=== PATIENT | male | born 1995 | race Caucasian/White ===

== ENCOUNTER 2023-01-23 22:05 | Emergency (ER) | payer MEDICARE, MEDICAID ==
[2023-01-23 22:37] VITALS: BP 125/74; O2SAT 97
[2023-01-24 00:20] LABS: MUDS CUTOFF CONCENTRATIONS CUTOFF CONC BELOW:
[2023-01-24 00:49] LABS: AMPHETAMINE SCREEN,URINE POSITIVE (NEGATIVE); BARBITURATE SCREEN,UR NEGATIVE (NEGATIVE); BENZODIAZEPINES SCREEN, URINE NEGATIVE (NEGATIVE); COCAINE SCREEN URINE NEGATIVE (NEGATIVE); METHADONE SCREEN, URINE NEGATIVE (NEGATIVE); METHAMPHETAMINES SCREEN, URINE POSITIVE (NEGATIVE); OPIATE SCREEN, URINE NEGATIVE (NEGATIVE); OXYCODONE SCREEN, URINE NEGATIVE (NEGATIVE); PROPOXYPHENE SCREEN, URINE NEGATIVE (NEGATIVE); THC CANNABINOID SCREEN, URINE NEGATIVE (NEGATIVE); TRICYCLIC ANTIDEPRESSANT,URINE NEGATIVE (NEGATIVE)
--- NOTE | 2023-01-24 02:16 | ED Physician Documentation ---
PD HPI MHE - Stated complaint Stated Complaint: PARANOIA - Chief complaint Chief Complaint: MHE - History obtained from History obtained from: Patient - Additional information Additional information: HPI from patient. Patient presents to ED voluntarily c/o AH and VH since last night. He says that last night, he ran out of his trailer late at night to yell at people trespassing on his property to get off. He quickly realized there was no one there and that he was hallucinating. Sometime after that same evening, he had visions of strangers tearing up the floor of his trailer. He started to yell at them, too, and again quickly realized there was no one there. Patient tells me he take olaznepine 10 mg PO BID, and two new prescriptions (started 01/08/23) are buproprion and clonidine. 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 He strongly denies SI/HI. He says he is asking for some kind of help so that he doesn't act on (in his response) to the AH/VH. Denies ethanol intake. Review of Systems Constitutional: reports: Reviewed and negative Cardiac: reports: Reviewed and negative Respiratory: reports: Reviewed and negative GI: reports: Reviewed and negative Neurologic: reports: Reviewed and negative Psychiatric: reports: Depressed, Hallucinations, Anxiety. denies: Suicidal, Homicidal PD PAST MEDICAL HISTORY - Past Medical History Past Medical History: Yes Cardiovascular: Hypertension Respiratory: None Neuro: None Endocrine/Autoimmune: None GI: None : None HEENT: None Psych: Depression, Post traumatic stress disorder Musculoskeletal: None Derm: None - Past Surgical History Past Surgical History: No - Present Medications Home Medications: Ambulatory Orders Medication Instructions Recorded Confirmed OLANZapine [Olanzapine] 10 mg PO DAILY 01/23/23 01/23/23 buPROPion HCL [Bupropion Xl] 150 mg PO DAILY 01/23/23 01/23/23 cloNIDine [Catapres] 0.1 mg PO HS 01/23/23 01/23/23 - Allergies Allergies/Adverse Reactions: Allergies Allergy/AdvReac Type Severity Reaction Status Date / Time No Known Drug Allergies Allergy Verified 01/23/23 22:29 - Social History Does the pt smoke?: No Smoking Status: Never smoker Does the pt drink ETOH?: No Does the pt have substance abuse?: No - Immunizations Immunizations are current?: Yes - POLST Patient has POLST: No PD ED PE NORMAL - Vitals Vital signs reviewed: Yes - General General: Alert and oriented X 3, No acute distress, Well developed/nourished - HEENT HEENT: Atraumatic, PERRL, EOMI - Cardiac Cardiac: RRR, No murmur - Respiratory Respiratory: No respiratory distress, Clear bilaterally - Abdomen Abdomen: Soft, Non tender - Derm Derm: Normal color, Warm and dry - Neuro Neuro: Alert and oriented X 3, precision crop manager 2-12 intact, No motor deficit, No sensory deficit, Normal speech Eye Opening: Spontaneous Motor: Obeys Commands Verbal: Oriented GCS Score: 15 PD ED PE EXPANDED - Psych Psych: Withdrawn, Other (flat affect) Results - Vitals Vitals: Oxygen O2 Source Room air - Labs Labs: Laboratory Tests 01/23/23 01/23/23 01/24/23 22:37 22:51 05:39 WBC 8.3 RBC 5.35 Hgb 15.8 Hct 45.5 MCV 85.0 MCH 29.5 MCHC 34.7 RDW 12.9 Plt Count 289 MPV 8.8 Neut # (Auto) 4.1 Lymph # (Auto) 3.0 [place] # (Auto) 1.0 Eos # (Auto) 0.1 Baso # (Auto) 0.0 Absolute Nucleated RBC 0.00 Nucleated RBC % 0.0 Sodium Potassium Chloride Carbon Dioxide Anion Gap BUN Creatinine Estimated GFR (MDRD) Glucose Calcium Total Bilirubin AST ALT Alkaline Phosphatase Total Protein Albumin Globulin Albumin/Globulin Ratio Lipase Salicylates Urine Opiates Screen NEGATIVE Ur Oxycodone Screen NEGATIVE Urine Methadone Screen NEGATIVE Ur Propoxyphene Screen NEGATIVE Acetaminophen Ur Barbiturates Screen NEGATIVE Ur Tricyclics Screen NEGATIVE Ur Phencyclidine Scrn NEGATIVE Ur Amphetamine Screen POSITIVE H U Methamphetamines Scrn POSITIVE H U Benzodiazepines Scrn NEGATIVE Urine Cocaine Screen NEGATIVE U Cannabinoids Screen NEGATIVE Ethyl Alcohol < 10.0 01/24/23 05:39 WBC RBC Hgb Hct MCV MCH MCHC RDW Plt Count MPV Neut # (Auto) Lymph # (Auto) [place] # (Auto) Eos # (Auto) Baso # (Auto) Absolute Nucleated RBC Nucleated RBC % Sodium 137 Potassium 3.8 Chloride 105 Carbon Dioxide 24 Anion Gap 8.0 BUN 23 H Creatinine 1.4 H Estimated GFR (MDRD) 62 L Glucose 92 Calcium 10.2 Total Bilirubin 0.6 AST 31 ALT 31 Alkaline Phosphatase 92 Total Protein 7.8 Albumin 4.8 Globulin 3.0 Albumin/Globulin Ratio 1.6 Lipase 8 L Salicylates < 1.5 Urine Opiates Screen Ur Oxycodone Screen Urine Methadone Screen Ur Propoxyphene Screen Acetaminophen < 0.1 Ur Barbiturates Screen Ur Tricyclics Screen Ur Phencyclidine Scrn Ur Amphetamine Screen U Methamphetamines Scrn U Benzodiazepines Scrn Urine Cocaine Screen U Cannabinoids Screen Ethyl Alcohol PD Medical Decision Making - ED course Complexity details: reviewed results, re-evaluated patient, considered differential, d/w patient ED course: Telepsychiatric consult obtained; they recommend involuntary inpatient treatment. DCR consult requested through [facility] and this consult is pending at end of my shift; turn-over of care is to Dr. Carrasquillo at end of my shift. Departure - Departure Disposition: 01 Home, Self Care Clinical Impression: Psychiatric symptoms Condition: Stable Instructions: ED Psychosis Comments: Follow-up with [facility] at [phone] to schedule psychiatric care and counseling. Please make sure to take your medications as directed. Return to the emergency department with any worsening symptoms. Forms: PCP List Discharge Date/Time: 01/24/23 10:53
[2023-01-24] MEDS ORDERED: OLANZapine ODT 5 MG TABLET TL STA (05:24)
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
[2023-01-24 05:46] LABS: BASOPHILS % (AUTO) 0.5 %; EOSINOPHILS # (AUTO) 0.1 10^3/uL (0.0-0.7); EOSINOPHILS % (AUTO) 1.1 %; HCT - HEMATOCRIT 45.5 % (42.0-52.0); HGB - HEMOGLOBIN 15.8 g/dL (14.0-18.0); LYMPHOCYTES % (AUTO) 36.7 %; MEAN CORPUSCULAR HEMOGLOBIN 29.5 pg (27.0-31.0); MEAN CORPUSCULAR HGB CONC 34.7 g/dL (32.0-36.0); MEAN PLATELET VOLUME 8.8 fL (7.4-11.4); MONOCYTES % (AUTO) 12.1 %; NEUTROPHILS # (AUTO) 4.1 10^3/uL (1.5-6.6); NEUTROPHILS % (AUTO) 49.5 %; PLT - PLATELET COUNT 289 10^3/uL (130-450); RED BLOOD COUNT 5.35 10^6/uL (4.70-6.10); RED CELL DISTRIBUTION WIDTH 12.9 % (12.0-15.0); WHITE BLOOD COUNT 8.3 x10^3/uL (4.8-10.8)
[2023-01-24 05:57] LABS: ALBUMIN 4.8 g/dL (3.2-5.5); ALBUMIN/GLOBULIN RATIO 1.6 (1.0-2.2); ALKALINE PHOSPHATASE 92 IU/L (42-121); ALT ALANINE AMINOTRANSFERASE 31 IU/L (10-60); AST ASPARTATE AMINOTRANSFERASE 31 IU/L (10-42); BILIRUBIN,TOTAL 0.6 mg/dL (0.2-1.0); BUN - BLOOD UREA NITROGEN 23 mg/dL (6-20); CALCIUM 10.2 mg/dL (8.5-10.3); CARBON DIOXIDE - CO2 24 mmol/L (21-32); CHLORIDE 105 mmol/L (101-111); CREATININE 1.4 mg/dL (0.6-1.3); GFR - MDRD 62 (>89); GLUCOSE 92 mg/dL (74-104); POTASSIUM 3.8 mmol/L (3.5-4.5); SODIUM 137 mmol/L (135-145); TOTAL PROTEIN 7.8 g/dL (6.4-8.9)
[2023-01-24 05:58] LABS: ACETAMINOPHEN < 0.1 ug/mL
[2023-01-24 05:59] LABS: LIPASE 8 U/L (11-82)
[2023-01-24 06:00] LABS: SALICYLATE < 1.5 mg/dL
--- NOTE | 2023-01-24 08:24 | ED Physician Documentation ---
ED Addendum - Addendum Addendum: 01/24/23 08:23 Christi was DCR is here to see the patient. 01/24/23 09:52 Christi has evaluated the patient and also spoken to his mother. Patient does not appear to be acutely psychotic or gravely disabled at this time. He is not suicidal. He he does not meet criteria for involuntary de tainment. He is very eager for additional outpatient resources and does see a provider at the [facility]. Christi is going to give him additional resources regarding a community social worker delinquency prevention for therapy. Departure - Departure Disposition: 01 Home, Self Care Clinical Impression: Psychiatric symptoms Condition: Stable Instructions: ED Psychosis Comments: Follow-up with [facility] at [phone] to schedule psychiatric care and counseling. Please make sure to take your medications as directed. Return to the emergency department with any worsening symptoms. Forms: PCP List
== END 2023-01-24 10:53 | disposition home or self-care (01) ==
LOC: ED 22:05
DX: R44.0 Auditory hallucinations (principal); R44.1 Visual hallucinations; F15.122 Other stimulant abuse with intoxication with perceptual disturbance; F43.10 Post-traumatic stress disorder, unspecified; F41.9 Anxiety disorder, unspecified; F32.A Depression, unspecified; I10 Essential (primary) hypertension; Z79.899 Other long term (current) drug therapy
CPT/HCPCS: 36415; 80053; 80306; 80307; 83690; 85025; 99283; A9270; G0425; G0480; Q3014; 80320; 80329

== ENCOUNTER 2023-01-26 03:12 | Outpatient (CLI) | payer MEDICARE, MEDICAID | END 2023-01-26 03:13 | disposition critical access hospital (66) | LOC: EMS 03:12 | DX: Z04.6 Encounter for general psychiatric examination, requested by authority (principal); R46.89 Other symptoms and signs involving appearance and behavior; R30.9 Painful micturition, unspecified | CPT/HCPCS: A0425; A0429 ==

== ENCOUNTER 2023-01-26 03:33 | Inpatient (IN) | payer MEDICARE, MEDICAID ==
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
[2023-01-26 04:10] LABS: BASOPHILS % (AUTO) 0.4 %; EOSINOPHILS # (AUTO) 0.1 10^3/uL (0.0-0.7); EOSINOPHILS % (AUTO) 0.7 %; HCT - HEMATOCRIT 44.6 % (42.0-52.0); HGB - HEMOGLOBIN 15.4 g/dL (14.0-18.0); LYMPHOCYTES # (AUTO) 2.4 10^3/uL (1.5-3.5); MEAN CORPUSCULAR HGB CONC 34.5 g/dL (32.0-36.0); MEAN PLATELET VOLUME 8.9 fL (7.4-11.4); MONOCYTES # (AUTO) 1.1 10^3/uL (0.0-1.0); MONOCYTES % (AUTO) 11.2 %; NEUTROPHILS # (AUTO) 5.7 10^3/uL (1.5-6.6); NEUTROPHILS % (AUTO) 61.6 %; PLT - PLATELET COUNT 302 10^3/uL (130-450); RED BLOOD COUNT 5.31 10^6/uL (4.70-6.10); RED CELL DISTRIBUTION WIDTH 12.5 % (12.0-15.0); WHITE BLOOD COUNT 9.3 x10^3/uL (4.8-10.8)
[2023-01-26] MEDS ORDERED: OLANZapine ODT 5 MG TABLET TL ONE (04:14)
[2023-01-26] MEDS ORDERED: buPROPion SR 150 MG TABLET PO STA (04:14)
[2023-01-26] MEDS ORDERED: cloNIDine 0.1 MG TABLET PO STA (04:14)
[2023-01-26 04:18] LABS: GLUCOSE, URINE (UA) NEGATIVE (NEGATIVE); KETONES,URINE (UA) 15 mg/dL (NEGATIVE); LEUKOCYTE ESTERASE, URINE NEGATIVE (NEGATIVE); MUDS CUTOFF CONCENTRATIONS CUTOFF CONC BELOW:; NITRITE,URINE NEGATIVE (NEGATIVE); OCCULT BLOOD,URINE NEGATIVE (NEGATIVE); PH,URINE 5.5 PH (5.0-7.5); PROTEIN,URINE TRACE mg/dL (NEGATIVE); UROBILINOGEN,URINE 0.2 (NORMAL) E.U./dL (NORMAL)
[2023-01-26 04:22] LABS: BILIRUBIN,URINE NEGATIVE (NEGATIVE); CLARITY,URINE CLEAR (CLEAR); ICTOTEST,URINE NEGATIVE
[2023-01-26 04:26] LABS: ALBUMIN/GLOBULIN RATIO 1.6 (1.0-2.2); ALKALINE PHOSPHATASE 103 IU/L (42-121); ALT ALANINE AMINOTRANSFERASE 36 IU/L (10-60); AST ASPARTATE AMINOTRANSFERASE 50 IU/L (10-42); BILIRUBIN,TOTAL 0.7 mg/dL (0.2-1.0); BUN - BLOOD UREA NITROGEN 25 mg/dL (6-20); CALCIUM 10.2 mg/dL (8.5-10.3); CARBON DIOXIDE - CO2 22 mmol/L (21-32); CHLORIDE 103 mmol/L (101-111); CREATININE 1.3 mg/dL (0.6-1.3); ETOH - ETHANOL < 10.0 mg/dL; GFR - MDRD 67 (>89); GLUCOSE 101 mg/dL (74-104); LIPASE 10 U/L (11-82); POTASSIUM 3.9 mmol/L (3.5-4.5); SODIUM 136 mmol/L (135-145); TOTAL PROTEIN 8.2 g/dL (6.4-8.9)
[2023-01-26 04:28] LABS: THC CANNABINOID SCREEN, URINE POSITIVE (NEGATIVE)
[2023-01-26 04:29] LABS: AMPHETAMINE SCREEN,URINE POSITIVE (NEGATIVE); BARBITURATE SCREEN,UR NEGATIVE (NEGATIVE); BENZODIAZEPINES SCREEN, URINE NEGATIVE (NEGATIVE); COCAINE SCREEN URINE NEGATIVE (NEGATIVE); METHADONE SCREEN, URINE NEGATIVE (NEGATIVE); METHAMPHETAMINES SCREEN, URINE POSITIVE (NEGATIVE); OPIATE SCREEN, URINE NEGATIVE (NEGATIVE); OXYCODONE SCREEN, URINE NEGATIVE (NEGATIVE); PROPOXYPHENE SCREEN, URINE NEGATIVE (NEGATIVE); TRICYCLIC ANTIDEPRESSANT,URINE NEGATIVE (NEGATIVE)
[2023-01-26 04:38] LABS: CK- CREATINE KINASE 2371 IU/L (30-223); SALICYLATE < 1.5 mg/dL
[2023-01-26 04:39] LABS: ACETAMINOPHEN < 0.1 ug/mL
[2023-01-26] MEDS ORDERED: SODIUM CHLORIDE 0.9% 1,000 ML IV STA (04:39)
[2023-01-26 04:41] LABS: THYROID STIMULATING HORMONE 2.21 uIU/mL (0.34-5.60)
[2023-01-26] MEDS ORDERED: SODIUM CHLORIDE 0.9% 1,000 ML IV ONE (04:58)
[2023-01-26] MEDS ORDERED: ACETAMINOPHEN 325 MG TABLET PO PRN (05:05)
[2023-01-26] MEDS ORDERED: SODIUM CHLORIDE FLUSH 0.9% 10 ML SYRINGE IVP PRN (05:05)
[2023-01-26] MEDS ORDERED: ONDANSETRON 4 MG/2 ML VIAL IVP PRN (05:05)
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
[2023-01-26] MEDS: SODIUM CHLORIDE 0.9% 1,000 ML IV SCH ×2 (07:34→17:17)
[2023-01-26] MEDS: SODIUM CHLORIDE FLUSH 0.9% 10 ML SYRINGE IVP SCH ×2 (08:02→17:17)
--- NOTE | 2023-01-26 09:57 | XRAY Report ---
PROCEDURE: Chest 1 View X-Ray INDICATIONS: Hypoxia TECHNIQUE: One view of the chest was acquired. COMPARISON: None. FINDINGS: Surgical changes and devices: None. Lungs and pleura: Bilateral low lung volumes. No focal air space opacity is seen. No definite pleura l effusion or pneumothorax on this supine exam. Mediastinum: Mediastinal contours appear normal. Heart size is normal. Bones and chest wall: No suspicious bony lesions. Overlying soft tissues appear unremarkable. IMPRESSION: Low lung lines bilaterally. No definite acute cardiopulmonary abnormality. Reviewed by: Gurvinder Poon MD on 01/26/2023 9:55 AM PDT Approved by: Gurvinder Poon MD on 01/26/2023 9:55 AM PDT Station ID: [id number]
[2023-01-26 14:54] VITALS: BP 143/80
[2023-01-26 16:19] VITALS: O2SAT 98
--- NOTE | 2023-01-26 16:41 | PHARMACY PROGRESS NOTE ---
- Best Possible Medication History Admit Date and Time: 01/26/23 0505 Processed by: Pharmacy Medication History completed: Yes Patient Interview: Completed Secondary Source(s): Insurance records As the person ultimately responsible for medication therapy, providers are able to order a medication from an existing home medication list in [facility] via the "Reconcile Routine" prior to Confirmation of that medication by high school learning support teacher. Such practice is discouraged except when the physician, in their clinical judgment, deems that a medical need exists for a medication without regard to previous use.
[2023-01-26] MEDS ORDERED: IBUPROFEN 600 MG TABLET PO PRN (17:05)
--- NOTE | 2023-01-26 17:46 | PROVIDER PROGRESS NOTE ---
Hospitalist Cross-cover Note - Cross-Cover Note Cross-Cover Note: Patient was somnolent, confused most of the day, pulled out his iv. He woke up and was alert and oriented in the late afternoon. Imp: Rhabdo Psychosis Meth abuse Morbid obesity BMI >50 Plan: Admit patient from Observation to Inpatient status for the continued altered mental status and for IV fluids to treat his rhabdomyolysis Will start his diet at dinnertime Awaiting Telepsych eval Await reconciled med list, restart his psych meds Follow CK daily Continue IV fluids Follow BUN/creatinine daily
--- NOTE | 2023-01-26 18:00 | Discharge Plan ---
Discharge Plan Problem Reviewed?: Yes Disposition: 07 Against Medical Advice Condition: Fair No Smoking: If you smoke, Please STOP! Call for help.
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
[2023-01-26] MEDS ORDERED: cloNIDine 0.1 MG TABLET PO SCH (21:00)
[2023-01-26] MEDS ORDERED: OLANZapine ODT 5 MG TABLET TL SCH (21:00)
[2023-01-27] MEDS ORDERED: buPROPion XL 150 MG TABLET PO SCH (09:00)
== END 2023-01-26 18:00 | disposition left against medical advice (07) | DRG 558 ==
LOC: ED 03:33 → MS2 05:05 → OBSVTOIN 17:03
PROVIDERS: ADMIT Internal Medicine; ATTEND Internal Medicine
DX: M62.82 Rhabdomyolysis (principal); F29 Unspecified psychosis not due to a substance or known physiological condition; R45.1 Restlessness and agitation; F15.10 Other stimulant abuse, uncomplicated; F41.9 Anxiety disorder, unspecified; F32.A Depression, unspecified; I10 Essential (primary) hypertension; F43.10 Post-traumatic stress disorder, unspecified; R00.0 Tachycardia, unspecified; R09.02 Hypoxemia; Z59.00 Homelessness unspecified; E66.01 Morbid (severe) obesity due to excess calories; R41.82 Altered mental status, unspecified
CPT/HCPCS: 36415; 71045; 80053; 80306; 80307; 81003; 82550; 83690; 83735; 84443; 85025; A9270; G0480; 80320; 80329; 81001; 87086; 96360; 99284

== ENCOUNTER 2023-01-28 19:53 | Emergency (ER) | payer MEDICARE, MEDICAID ==
[2023-01-28 20:28] LABS: MUDS CUTOFF CONCENTRATIONS CUTOFF CONC BELOW:
[2023-01-28 20:33] LABS: GLUCOSE, URINE (UA) NEGATIVE (NEGATIVE); KETONES,URINE (UA) 40 mg/dL (NEGATIVE); LEUKOCYTE ESTERASE, URINE NEGATIVE (NEGATIVE); NITRITE,URINE NEGATIVE (NEGATIVE); OCCULT BLOOD,URINE NEGATIVE (NEGATIVE); PH,URINE 5.5 PH (5.0-7.5); PROTEIN,URINE TRACE mg/dL (NEGATIVE); UROBILINOGEN,URINE 0.2 (NORMAL) E.U./dL (NORMAL)
[2023-01-28] MEDS ORDERED: DROPERIDOL 5 MG/2 ML VIAL IVP STA (20:35)
[2023-01-28 20:36] LABS: BILIRUBIN,URINE NEGATIVE (NEGATIVE); CLARITY,URINE CLEAR (CLEAR); ICTOTEST,URINE NEGATIVE
[2023-01-28] MEDS ORDERED: SODIUM CHLORIDE 0.9% 1,000 ML IV STA ×2 (20:41→21:18)
[2023-01-28 20:44] LABS: BASOPHILS % (AUTO) 0.3 %; EOSINOPHILS # (AUTO) 0.1 10^3/uL (0.0-0.7); EOSINOPHILS % (AUTO) 1.5 %; HCT - HEMATOCRIT 39.5 % (42.0-52.0); HGB - HEMOGLOBIN 13.6 g/dL (14.0-18.0); LYMPHOCYTES # (AUTO) 2.7 10^3/uL (1.5-3.5); LYMPHOCYTES % (AUTO) 29.2 %; MEAN CORPUSCULAR HEMOGLOBIN 29.4 pg (27.0-31.0); MEAN CORPUSCULAR HGB CONC 34.4 g/dL (32.0-36.0); MEAN CORPUSCULAR VOLUME 85.5 fL (80.0-94.0); MONOCYTES # (AUTO) 1.2 10^3/uL (0.0-1.0); MONOCYTES % (AUTO) 13.3 %; NEUTROPHILS # (AUTO) 5.1 10^3/uL (1.5-6.6); NEUTROPHILS % (AUTO) 55.4 %; PLT - PLATELET COUNT 268 10^3/uL (130-450); RED BLOOD COUNT 4.62 10^6/uL (4.70-6.10); RED CELL DISTRIBUTION WIDTH 12.6 % (12.0-15.0); WHITE BLOOD COUNT 9.3 x10^3/uL (4.8-10.8)
[2023-01-28 20:47] LABS: AMPHETAMINE SCREEN,URINE POSITIVE (NEGATIVE); COCAINE SCREEN URINE NEGATIVE (NEGATIVE); METHAMPHETAMINES SCREEN, URINE POSITIVE (NEGATIVE); OPIATE SCREEN, URINE NEGATIVE (NEGATIVE); THC CANNABINOID SCREEN, URINE NEGATIVE (NEGATIVE)
[2023-01-28 20:48] LABS: BARBITURATE SCREEN,UR NEGATIVE (NEGATIVE); BENZODIAZEPINES SCREEN, URINE NEGATIVE (NEGATIVE); METHADONE SCREEN, URINE NEGATIVE (NEGATIVE); OXYCODONE SCREEN, URINE NEGATIVE (NEGATIVE); PROPOXYPHENE SCREEN, URINE NEGATIVE (NEGATIVE); TRICYCLIC ANTIDEPRESSANT,URINE NEGATIVE (NEGATIVE)
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
--- NOTE | 2023-01-28 21:10 | XRAY Report ---
PROCEDURE: Chest 1 View X-Ray INDICATIONS: chest pain TECHNIQUE: One view of the chest was acquired. COMPARISON: Chest x-ray 01/26/2023 FINDINGS: Surgical changes and devices: None. Lungs and pleura: No pleural effusions or pneumothorax. Lungs are clear. Mediastinum: Mediastinal contours appear normal. Heart size is normal. Bones and chest wall: No suspicious bony lesions. Overlying soft tissues appear unremarkable. IMPRESSION: No acute cardiopulmonary process. Reviewed by: Kenia Shore MD on 01/28/2023 9:09 PM PDT Approved by: Kenia Shore MD on 01/28/2023 9:09 PM PDT Station ID: [id number]
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
[2023-01-28 21:16] LABS: ALBUMIN 4.3 g/dL (3.2-5.5); ALBUMIN/GLOBULIN RATIO 1.4 (1.0-2.2); ALKALINE PHOSPHATASE 84 IU/L (42-121); ALT ALANINE AMINOTRANSFERASE 44 IU/L (10-60); AST ASPARTATE AMINOTRANSFERASE 52 IU/L (10-42); BILIRUBIN,TOTAL 0.8 mg/dL (0.2-1.0); BUN - BLOOD UREA NITROGEN 20 mg/dL (6-20); CALCIUM 9.1 mg/dL (8.5-10.3); CARBON DIOXIDE - CO2 21 mmol/L (21-32); CHLORIDE 108 mmol/L (101-111); CK- CREATINE KINASE 2168 IU/L (22-269); CREATININE 1.2 mg/dL (0.6-1.2); ETOH - ETHANOL < 10.0 mg/dL; GFR - MDRD 74 (>89); GLUCOSE 85 mg/dL (70-100); LIPASE 23 U/L (22-51); POTASSIUM 3.6 mmol/L (3.5-5.0); SODIUM 139 mmol/L (135-145); TOTAL PROTEIN 7.4 g/dL (6.7-8.2)
[2023-01-28 22:30] LABS: ACETAMINOPHEN < 0 ug/mL (10-30); SALICYLATE < 1.5 mg/dL
[2023-01-29] MEDS ORDERED: OLANZapine ODT 5 MG TABLET TL ONE (09:13)
[2023-01-29] MEDS ORDERED: buPROPion XL 150 MG TABLET PO STA (09:14)
[2023-01-29] MEDS ORDERED: LORazepam 0.5 MG TABLET PO STA (09:15)
[2023-01-29] MEDS ORDERED: cloNIDine 0.1 MG TABLET PO STA (09:15)
--- NOTE | 2023-01-29 18:47 | ED Physician Documentation ---
ED Addendum - Addendum Addendum: 01/29/23 18:45 The patient was little bit agitated this morning but had not had as usual p.m. or morning meds. I gave him his usual prescriptions along with some Ativan and that seemed to help. He was more rested and calm through the day. He talked with social work several times. Social work looked for placement for him for detox. He is still interested in detox. Several facilities did not have beds tonight. [facility] and may have beds in the morning. They did want to see his CK improved to a better number. Last recheck was at 1000. Will encourage p.o. fluids. Otherwise [facility] may have a bed tomorrow. The patient is not suicidal. He is voluntary. At this point he and his mother are interested in staying until placement can be found so likely into the morning at least. However should he decide that he wants to leave, that would be reasonable. He had been prescribed medications from his recent hospitalization several days ago and they should be available at the pharmacy. I will order his usual evening and morning meds at this time.
[2023-01-29 19:38] VITALS: BP 120/73; O2SAT 99
[2023-01-29] MEDS ORDERED: LORazepam 1 MG TABLET PO PRN (20:00)
[2023-01-29] MEDS ORDERED: cloNIDine 0.1 MG TABLET PO SCH (21:00)
[2023-01-29] MEDS ORDERED: OLANZapine ODT 5 MG TABLET TL SCH (21:00)
--- NOTE | 2023-01-29 21:11 | ED Physician Documentation ---
ED Addendum - Addendum Addendum: 01/29/23 21:08 Patient received a signout from outgoing physician, please see their do cumentation for further detail. Patient evaluated independently at bedside. At this time reports that he wishes to leave the emergency department. Demonstrates decisional capacity. Denies SI HI. Does not demonstrate indications of imminent harm to self or others. His plan for the evening is to sleep in his mother's garage and she is at bedside and is amenable to this plan. They will continue to look for rehabilitation facilities in the morning. Clear return precautions given.
[2023-01-30] MEDS ORDERED: buPROPion XL 150 MG TABLET PO SCH (09:00)
== END 2023-01-29 21:36 | disposition home or self-care (01) ==
LOC: ED 19:53
DX: F15.10 Other stimulant abuse, uncomplicated (principal); R74.8 Abnormal levels of other serum enzymes; I10 Essential (primary) hypertension; F17.200 Nicotine dependence, unspecified, uncomplicated; Z20.822 Contact with and (suspected) exposure to COVID-19; Z79.899 Other long term (current) drug therapy
CPT/HCPCS: 36415; 71045; 73562; 80053; 80306; 80307; 81003; 82550; 83690; 84443; 85025; 87635; 93005; 96361; 96374; 99284; A9270; G0480; J8499; 80320; 80329; 81001; 83735; 87086

== ENCOUNTER 2023-02-02 08:00 | Outpatient (CLI) | payer MEDICARE, MEDICAID ==
[2023-02-02 20:49] LABS: BASOPHILS % (AUTO) 0.4 %; EOSINOPHILS # (AUTO) 0.1 10^3/uL (0.0-0.7); HCT - HEMATOCRIT 44.5 % (42.0-52.0); HGB - HEMOGLOBIN 15.3 g/dL (14.0-18.0); LYMPHOCYTES # (AUTO) 2.5 10^3/uL (1.5-3.5); LYMPHOCYTES % (AUTO) 35.4 %; MEAN CORPUSCULAR HEMOGLOBIN 29.8 pg (27.0-31.0); MEAN CORPUSCULAR HGB CONC 34.4 g/dL (32.0-36.0); MEAN CORPUSCULAR VOLUME 86.6 fL (80.0-94.0); MEAN PLATELET VOLUME 10.1 fL (7.4-11.4); MONOCYTES # (AUTO) 0.7 10^3/uL (0.0-1.0); MONOCYTES % (AUTO) 9.5 %; NEUTROPHILS # (AUTO) 3.7 10^3/uL (1.5-6.6); NEUTROPHILS % (AUTO) 52.3 %; PLT - PLATELET COUNT 331 10^3/uL (130-450); RED BLOOD COUNT 5.14 10^6/uL (4.70-6.10); RED CELL DISTRIBUTION WIDTH 12.8 % (12.0-15.0)
[2023-02-02 21:31] LABS: THYROID STIMULATING HORMONE 1.14 uIU/mL (0.34-5.60)
[2023-02-02 21:39] LABS: HDL CHOLESTEROL 40 mg/dL
[2023-02-02 23:47] LABS: BUN - BLOOD UREA NITROGEN 15 mg/dL (6-20); CARBON DIOXIDE - CO2 25 mmol/L (21-32); CHLORIDE 107 mmol/L (101-111); CREATININE 0.9 mg/dL (0.6-1.2); GFR - MDRD 103 (>89); GLUCOSE 122 mg/dL (70-100); SODIUM 141 mmol/L (135-145)
[2023-02-02 23:48] LABS: ALBUMIN/GLOBULIN RATIO 1.3 (1.0-2.2); ALKALINE PHOSPHATASE 92 IU/L (42-121); ALT ALANINE AMINOTRANSFERASE 38 IU/L (10-60); AST ASPARTATE AMINOTRANSFERASE 24 IU/L (10-42); CALCIUM 9.4 mg/dL (8.5-10.3); CHOL/HDL RATIO 4.6 (<5.0); CHOLESTEROL 185 mg/dL; CK- CREATINE KINASE 192 IU/L (22-269); TOTAL PROTEIN 7.2 g/dL (6.7-8.2); TRIGLYCERIDES 603 mg/dL
[2023-02-03 00:17] LABS: LDL CHOLESTEROL,DIRECT 97 mg/dL; LDLD/HDL RATIO 2.4 (<3.6)
[2023-02-03 02:28] LABS: BILIRUBIN,TOTAL 0.2 mg/dL (0.2-1.0)
[2023-02-03 06:26] LABS: ESTIMATED AVERAGE GLUCOSE 111 mg/dL (70-100); HEMOGLOBIN A1c% 5.5 % (4.27-6.07)
[2023-02-05 12:09] LABS: HCV AB Non Reactive (Non Reactive)
[2023-02-06 01:08] LABS: HIV SCREEN 4TH GENERATION Non Reactive (Non Reactive)
[2023-02-06 05:12] LABS: RPR Non Reactive (Non Reactive)
== END 2023-02-02 23:59 | disposition home or self-care (01) ==
LOC: LAB.N 08:00
PROVIDERS: ATTEND Physician Assistant Medical
DX: Z00.00 Encounter for general adult medical examination without abnormal findings (principal); E66.01 Morbid (severe) obesity due to excess calories; Z68.43 Body mass index [BMI] 50.0-59.9, adult; Z11.3 Encounter for screening for infections with a predominantly sexual mode of transmission; F19.11 Other psychoactive substance abuse, in remission; R74.8 Abnormal levels of other serum enzymes
CPT/HCPCS: 36415; 80053; 80061; 82550; 83036; 83721; 84443; 85025; 86592; 86695; 86696; 86803; G0475; 87389

== ENCOUNTER 2023-03-08 13:43 | Emergency (ER) | payer MEDICARE, MEDICAID ==
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
[2023-03-08 14:16] LABS: BASOPHILS % (AUTO) 0.5 %; EOSINOPHILS # (AUTO) 0.2 10^3/uL (0.0-0.7); HCT - HEMATOCRIT 42.5 % (42.0-52.0); HGB - HEMOGLOBIN 14.7 g/dL (14.0-18.0); LYMPHOCYTES # (AUTO) 2.1 10^3/uL (1.5-3.5); LYMPHOCYTES % (AUTO) 26.4 %; MEAN CORPUSCULAR HEMOGLOBIN 29.7 pg (27.0-31.0); MEAN CORPUSCULAR HGB CONC 34.6 g/dL (32.0-36.0); MEAN CORPUSCULAR VOLUME 85.9 fL (80.0-94.0); MONOCYTES % (AUTO) 13.2 %; NEUTROPHILS # (AUTO) 4.6 10^3/uL (1.5-6.6); NEUTROPHILS % (AUTO) 57.8 %; PLT - PLATELET COUNT 281 10^3/uL (130-450); RED BLOOD COUNT 4.95 10^6/uL (4.70-6.10); RED CELL DISTRIBUTION WIDTH 13.4 % (12.0-15.0); WHITE BLOOD COUNT 7.9 x10^3/uL (4.8-10.8)
[2023-03-08 14:31] LABS: ALBUMIN 4.8 g/dL (3.2-5.5); ALBUMIN/GLOBULIN RATIO 1.6 (1.0-2.2); ALKALINE PHOSPHATASE 92 IU/L (42-121); ALT ALANINE AMINOTRANSFERASE 31 IU/L (10-60); AST ASPARTATE AMINOTRANSFERASE 31 IU/L (10-42); BILIRUBIN,TOTAL 0.7 mg/dL (0.2-1.0); BUN - BLOOD UREA NITROGEN 19 mg/dL (6-20); CALCIUM 9.7 mg/dL (8.5-10.3); CARBON DIOXIDE - CO2 21 mmol/L (21-32); CHLORIDE 104 mmol/L (101-111); CK- CREATINE KINASE 671 IU/L (30-223); ETOH - ETHANOL < 10.0 mg/dL; GFR - MDRD 91 (>89); GLUCOSE 87 mg/dL (74-104); MAGNESIUM 1.7 mg/dL (1.7-2.3); POTASSIUM 3.7 mmol/L (3.5-4.5); SODIUM 137 mmol/L (135-145); TOTAL PROTEIN 7.8 g/dL (6.4-8.9)
[2023-03-08 14:32] LABS: ACETAMINOPHEN < 0.1 ug/mL
[2023-03-08 14:36] LABS: MUDS CUTOFF CONCENTRATIONS CUTOFF CONC BELOW:
[2023-03-08 14:42] LABS: THYROID STIMULATING HORMONE 1.27 uIU/mL (0.34-5.60)
[2023-03-08 14:43] LABS: SALICYLATE < 1.5 mg/dL
[2023-03-08 14:44] LABS: LIPASE 8 U/L (11-82)
[2023-03-08 14:46] LABS: GLUCOSE, URINE (UA) NEGATIVE (NEGATIVE); KETONES,URINE (UA) 40 mg/dL (NEGATIVE); LEUKOCYTE ESTERASE, URINE NEGATIVE (NEGATIVE); NITRITE,URINE NEGATIVE (NEGATIVE); OCCULT BLOOD,URINE NEGATIVE (NEGATIVE); PROTEIN,URINE 30 mg/dL (NEGATIVE); UROBILINOGEN,URINE 0.2 (NORMAL) E.U./dL (NORMAL)
[2023-03-08 14:51] LABS: BILIRUBIN,URINE NEGATIVE (NEGATIVE); CLARITY,URINE CLEAR (CLEAR); ICTOTEST,URINE NEGATIVE
[2023-03-08 15:05] LABS: AMPHETAMINE SCREEN,URINE POSITIVE (NEGATIVE); BARBITURATE SCREEN,UR NEGATIVE (NEGATIVE); BENZODIAZEPINES SCREEN, URINE NEGATIVE (NEGATIVE); COCAINE SCREEN URINE NEGATIVE (NEGATIVE); METHADONE SCREEN, URINE NEGATIVE (NEGATIVE); METHAMPHETAMINES SCREEN, URINE POSITIVE (NEGATIVE); OPIATE SCREEN, URINE NEGATIVE (NEGATIVE); OXYCODONE SCREEN, URINE NEGATIVE (NEGATIVE); PROPOXYPHENE SCREEN, URINE NEGATIVE (NEGATIVE); THC CANNABINOID SCREEN, URINE NEGATIVE (NEGATIVE); TRICYCLIC ANTIDEPRESSANT,URINE NEGATIVE (NEGATIVE)
[2023-03-08 15:17] LABS: BACTERIA,URINE Rare /HPF (None Seen); RBC,URINE 0-5 /HPF (0-5); SQUAMOUS EPITHELIAL CELL,UR RARE Squamous (<= Few); WBC,URINE 0-3 /HPF (0-3)
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
--- NOTE | 2023-03-08 22:04 | XRAY Report ---
PROCEDURE: Knee 4 View RT INDICATIONS: knee inj TECHNIQUE: 4 views of the right knee(s) were acquired. COMPARISON: 01/28/2023 FINDINGS: Bones: No fractures or dislocations. No patella subluxation. No suspicious bony lesions. Soft tissues: Small to moderate knee joint effusion. No suspicious soft tissue calcifications or mas ses. IMPRESSION: No acute bony abnormality. Small to moderate joint effusion. Reviewed by: Jordan Gonsalez MD on 03/08/2023 10:03 PM PDT Approved by: Jordan Gonsalez MD on 03/08/2023 10:03 PM PDT Station ID: [id number]
--- NOTE | 2023-03-09 07:49 | ED Physician Documentation ---
ED Addendum - Addendum Addendum: 03/09/23 07:47 The patient reportedly slept well overnight. He was having a bed available at [facility] and they were able to get him there this morning by taxi. The taxi will be here in approximately 20 minutes. The patient was awakened by nursing staff. He is a little bit Sin from waking up and states he is still feeling a little tired. He did not denies any suicidal ideation at this time. He states he is not familiar with [facility] but is still willing to go. He is offered breakfast and snacks but declines at this moment. He is a little bit gruff in his demeanor still waking up but states he is just feeling tired still. Disposition: The patient is discharged stable to home with intention of going to detox directly. Diagnoses: 1. Knee contusion 2. Methamphetamine abuse 3. Poor social situation
[2023-03-09 07:50] VITALS: BP 128/84; O2SAT 98
== END 2023-03-09 07:56 | disposition home or self-care (01) ==
LOC: ED 13:43
DX: F15.10 Other stimulant abuse, uncomplicated (principal); S80.01XA Contusion of right knee, initial encounter; Y04.0XXA Assault by unarmed brawl or fight, initial encounter; Y04.2XXA Assault by strike against or bumped into by another person, initial encounter; Y93.9 Activity, unspecified; R74.8 Abnormal levels of other serum enzymes; F17.200 Nicotine dependence, unspecified, uncomplicated; Z60.9 Problem related to social environment, unspecified; Z59.01 Sheltered homelessness; Z20.822 Contact with and (suspected) exposure to COVID-19
CPT/HCPCS: 36415; 73564; 80053; 80306; 80307; 81001; 82550; 83690; 83735; 84443; 85025; 87635; 99283; 99284; G0480; 80320; 80329; 81003; 87086